=== PATIENT | female | born 1965 | race Caucasian/White ===

== ENCOUNTER 2022-10-08 18:18 | Emergency (ER) | payer OTHER, SELFPAY ==
[2022-10-08 18:37] VITALS: BP 143/102; PULSE 64; RESP 18; TEMP 36.4; O2SAT 100; BMI 30.4
--- NOTE | 2022-10-08 18:37 | ED_ITS ---
HPI - Eye Problem General Chief complaint: Eye Problems <Heidi Richards NP - Last Filed: 10/08/22 18:42> Stated complaint: R eye pain <Heidi Richards NP - Last Filed: 10/08/22 18:42> Time Seen by Provider: 10/08/22 19:43 <Heidi Richards NP - Last Filed: 10/08/22 18:42> Source: patient <Jada Schwartz MD - Last Filed: 10/08/22 20:57> Mode of arrival: ambulatory <Jada Schwartz MD - Last Filed: 10/08/22 20:57> Limitations: no limitations <Jada Schwartz MD - Last Filed: 10/08/22 20:57> History of Present Illness HPI Narrative: Patient comes emergency room complaining of 2 weeks of bilateral eye pain. Patient states that she has been treated with ketotifen eyedrops. Patient states that the tearing in her eyes has decreased. However, she still has pain in both eyes. Patient states it is not burning, it is a constant discomfort. Patient states that sometimes in the morning she wakes up with a bit of discharge but is not excessive. Patient denies fever chills. Patient states that at baseline she has blurry vision bilaterally, but over the last 2 weeks, it has been more blurry than usual. Patient denies seeing any floaters <Jada Schwartz MD - Last Filed: 10/08/22 20:57> Related Data Home medications: Previous Rx's Medication Instructions Recorded acetaminophen 500 mg capsule 500 mg PO Q6H PRN fever or pain 10/08/22 #20 caps erythromycin 5 mg/gram (0.5 %) eye 0.5 inch ophthalmic (eye) BID #3.5 10/08/22 ointment grams <Heidi Richards NP - Last Filed: 10/08/22 18:42> Allergies/adverse reactions: Allergies Allergy/AdvReac Type Severity Reaction Status Date / Time No Known Allergies Allergy Verified 10/08/22 18:37 <Heidi Richards NP - Last Filed: 10/08/22 18:42> Review of Systems Review of Systems: Constitutional : No Weight loss, No Fever, No Chills, No Night Sweats, No Fatigue, No Malaise ENT/Mouth : No Hearing loss, No Ear Pain, No Nasal Congestion, No Sinus Pain, No Hoarseness, No sore throat, No Rhinorrhea, No Swallowing Difficulty Eyes: Complaining of bilateral eye pain, occasional redness, occasional discharge Cardiovascular : No Chest Pain, No SOB, No Dyspnea on Exertion, No Orthopnea, No Edema, No Palpitations Respiratory : No Cough, No Sputum, No Wheezing, No Smoke Exposure, No Dyspnea Gastrointestinal : No Nausea, No Vomiting, No Diarrhea, No Constipation, No abdominal Pain, No Hematochezia, No Melena Genitourinary : no irregular bleeding, No Dysuria, No Urinary Frequency, No Hematuria, No Urinary Incontinence, No Urgency, No Flank Pain, No Urinary Flow Changes, No Hesitancy Musculoskeletal : No joint pain, No Myalgias, No Joint Swelling Skin : No Skin Lesions, No rash Neuro : No Weakness, No Numbness, No Paresthesias, No Loss of Consciousness, No Dizziness, No Headache Psych : No Anxiety/Panic, No Depression, No SI/HI/AH/VH, No Social Issues, Heme/Lymph: No Bruising, No Bleeding,No Lymphadenopathy Endocrine : No Polyuria, No Polydipsia, No Temperature Intolerance <Jada Schwartz MD - Last Filed: 10/08/22 20:57> [facility] Social History Social History: Social History Advance Directives: No Advance Directives Information Provided: No <Heidi Richards NP - Last Filed: 10/08/22 18:42> Physical Exam Vital Signs: Vital Signs: Last Vital Signs Temp 97.5 F 10/08/22 18:37 Pulse 64 10/08/22 18:37 Resp 18 10/08/22 18:37 BP 143/102 H 10/08/22 18:37 Pulse Ox 100 10/08/22 18:37 O2 Del Method 10/08/22 18:37 BMI result Body Mass Index 30.4 <Heidi Richards NP - Last Filed: 10/08/22 18:42> Vital Signs: Last Vital Signs Temp 97.5 F 10/08/22 18:37 Pulse 64 10/08/22 18:37 Resp 18 10/08/22 18:37 BP 143/102 H 10/08/22 18:37 Pulse Ox 100 10/08/22 18:37 O2 Del Method 10/08/22 18:37 BMI result Body Mass Index 30.4 <Jada Schwartz MD - Last Filed: 10/08/22 20:57> Const: Other: Appearance: Alert. Oriented X3. No acute distress. Eyes: Pupils equal, round and reactive to light. Seems to have slight photophobia, no conjunctival injection, no discharge, eye pressure in the ear right eye 11 mmHg, on the left side 12 mmHg, painless I have movements, fluorescein stain negative bilaterally, no corneal abrasions or foreign bodies visualized ENT: Pharynx normal. Neck: Normal inspection. Neck supple. No lymph nodes noted. No crepitus CVS: Normal heart rate and rhythm. Pulses normal. Normal S1 and S2 Respiratory: No respiratory distress. Breath sounds normal. No Wheezing. No rales Abdomen: Soft and nontender. No rigidity. No distention. Skin: Skin warm and dry. Normal skin color. Normal skin turgor. Extremities: No lower extremity edema. No Lacerations. No Rash Neuro: Oriented X 3. No motor deficit. No sensory deficit. Moving all extremities. No slurred speech. CN 2 through 12 grossly intact Psych: calm, cooperative, normal affect <Jada Schwartz MD - Last Filed: 10/08/22 20:57> Course Course Course Narrative: This is a rapid medical exam. Deferred additional HPI, ROS, PE to primary provider. 57 yo female with PMH hypothyroidism, gastritis, arthritis here with complaint of right eye itching, pain, redness, burning despite using topical ketoxifen to the eyes. Patient reports she saw the solar electric/photovoltaic installer 2 weeks ago and was prescribed eyedrops. She reports continued symptoms. She tells me she spoke to them today and is waiting to see a specialist in [place] who she is appointment within 1 week. No vision changes. Uses glasses only. VSS <Heidi Richards NP - Last Filed: 10/08/22 18:42> This is a rapid medical exam. Deferred additional HPI, ROS, PE to primary provider. 57 yo female with PMH hypothyroidism, gastritis, arthritis here with complaint of right eye itching, pain, redness, burning despite using topical ketoxifen to the eyes. Patient reports she saw the solar electric/photovoltaic installer 2 weeks ago and was prescribed eyedrops. She reports continued symptoms. She tells me she spoke to them today and is waiting to see a specialist in [place] who she is appointment within 1 week. No vision changes. Uses glasses only. VSS Patient wakes up with discharge in her eyes, questionable bacterial infection. Patient will benefit from a short course of erythromycin ointment. Also, I discussed with the patient given the amount of time of her symptoms, patient likely has uveitis. Patient has an appointment pending with her solar electric/photovoltaic installer in 1 week, requesting if we can give her the phone number of our ophthalmologists, maybe she can be seen sooner. Is possible that patient may need ophthalmic steroids. I discussed with the patient that it is best that this be determined by Ophthalmology <Jada Schwartz MD - Last Filed: 10/08/22 20:57> Medications Administered Discontinued Medications Generic Name Dose Route Start Last Admin Trade Name Freq PRN Reason Stop Dose Admin Fluorescein Sodium 1 strip 10/08/22 20:08 10/08/22 20:20 Fluorescein Sodium Strip EYE-LEFT 10/08/22 20:09 1 strip ONCE ONE Administration Tetracaine HCl 3 drop 10/08/22 20:08 10/08/22 20:20 Tetracaine Hcl/Pf 0.5% Oph Ольга 4 Ml Drops EYE-RIGHT 10/08/22 20:09 3 drop ONCE ONE Administration <Heidi Richards NP - Last Filed: 10/08/22 18:42> Medications Administered Discontinued Medications Generic Name Dose Route Start Last Admin Trade Name Freq PRN Reason Stop Dose Admin Fluorescein Sodium 1 strip 10/08/22 20:08 10/08/22 20:20 Fluorescein Sodium Strip EYE-LEFT 10/08/22 20:09 1 strip ONCE ONE Administration Tetracaine HCl 3 drop 10/08/22 20:08 10/08/22 20:20 Tetracaine Hcl/Pf 0.5% Oph Ольга 4 Ml Drops EYE-RIGHT 10/08/22 20:09 3 drop ONCE ONE Administration <Jada Schwartz MD - Last Filed: 10/08/22 20:57> Medical Decision Making Differential Diagnosis Differential Diagnoses: The differential diagnosis associated with the presentation includes (Iritis, uveitis, conjunctivitis, seasonal allergies) <Jada Schwartz MD - Last Filed: 10/08/22 20:57> Discharge Plan Discharge Clinical Impression: Uveitis of both eyes <Heidi Richards NP - Last Filed: 10/08/22 18:42> Patient Disposition: Home, Self-Care <Heidi Richards NP - Last Filed: 10/08/22 18:42> Instructions: Iritis (ED) <Heidi Richards NP - Last Filed: 10/08/22 18:42> Additional Instructions: Please follow-up with your primary care physician tomorrow. If you have any worsening or new symptoms, please return to the emergency room or call 911 <Heidi Richards NP - Last Filed: 10/08/22 18:42> Prescriptions: New erythromycin 5 mg/gram (0.5 %) ointment 0.5 inch ophthalmic (eye) BID Qty: 3.5 0RF acetaminophen 500 mg capsule 500 mg PO Q6H PRN (Reason: fever or pain) Qty: 20 0RF <Heidi Richards NP - Last Filed: 10/08/22 18:42> Referrals: Andrew Strickland [Physician] - 1 day <Heidi Richards NP - Last Filed: 10/08/22 18:42>
--- NOTE | 2022-10-08 18:42 | PC.NURSE ---
pt ok'd to put in emc per provider
[2022-10-08] MEDS: Tetracaine HCl/PF 0.5% Oph Sol 4 ML DROPS 3 DROP EYE-RIGHT (20:20)
[2022-10-08] MEDS: Fluorescein Sodium STRIP 1 STRIP EYE-LEFT (20:20)
== END 2022-10-08 21:08 | disposition home or self-care (01) ==
PROVIDERS: Emergency Provider Emergency Medicine
DX: H20.9 Unspecified iridocyclitis (principal); H57.13 Ocular pain, bilateral
CPT/HCPCS: 99282; 99283

== ENCOUNTER 2023-09-20 16:50 | Emergency (ER) | payer MEDICAID, SELFPAY ==
[2023-09-20 17:44] VITALS: BP 152/64; PULSE 60; RESP 20; TEMP 36.8; O2SAT 99; BMI 31.0
--- NOTE | 2023-09-20 17:45 | ED_ITS ---
HPI - General Adult General Chief complaint: General Medical Stated complaint: ? UTI Time Seen by Provider: 09/20/23 19:29 Source: patient Limitations: no limitations History of Present Illness HPI narrative: 58 years old with history of overactive bladder, uterine prolapse, presents emergency room for increased urinary frequency, dysuria and urinary tenesmus ongoing for the past 4 days. The patient reports that she urinates multiple times in an hour, denies however fever, abdominal pain. At times patient reports back pain. No chest pain, shortness of breath or cough No diarrhea, bloody stools. Patient next nodule uptake. Denies vaginal bleeding or vaginal discharge reports the symptoms are similar to prior UTI that was 3 years ago.+ Related Data Previous Rx's Medication Instructions Recorded acetaminophen 500 mg capsule 500 mg PO Q6H PRN fever or pain 10/08/22 #20 caps erythromycin 5 mg/gram (0.5 %) eye 0.5 inch ophthalmic (eye) BID #3.5 10/08/22 ointment grams phenazopyridine 100 mg tablet 100 mg PO TID dysuria 6 doses #10 09/20/23 (Pyridium) tabs Allergies Allergy/AdvReac Type Severity Reaction Status Date / Time No Known Allergies Allergy Verified 09/20/23 17:47 Review of Systems 2 Review of Systems: Yes all other systems are reviewed and are negative [facility] Social History Smoked in Last 30 Days: No Use of substances other than those prescribed or required for medical reasons: No Advance Directives: No Advance Directives Information Provided: No Physical Exam ED Vital Signs: Vital Signs - 24 hr 09/20/23 17:44 Temperature 98.2 F Pulse Rate 60 Respiratory Rate 20 Blood Pressure 152/64 H Pulse Oximetry 99 Oxygen Delivery Method Room Air BMI result Body Mass Index 31.0 General: Alert, Not in Distress Skin: No rash, warm HEENT: Atraumatic, No Exudate or Pharyngeal Erythema Resp: Normal Breath sounds bilaterally Cardio: Regular rate and Rhythm, Normal S1, S2 ABD: Abd soft, non tender, no guarding or rebound. Normal Bowel sounds. : No cva tenderness bilaterally Neuro: Alert, oriented x4, PERRL Strenght 5/5 on all extremities Sensation is preserved in both lower and upper extremities Index to nose: normal Cranial Nerves II-XII grossly intact No dysarthria, or aphasia No neglet. Visual beverly are normal bilaterally Psych: Cooperative, NO SI Course Course Course Narrative: This is a rapid medical exam: Additional HPI, ROS, PE not included below will be deferred to primary provider. Patient is a 58-year-old female presenting to the emergency department stating that she feels as though she has a UTI. Complains of frequency, dysuria for 5 days. Denies fevers but reports chills. Denies back or flank pain. Denies abnormal vaginal discharge. Denies abdominal pain, nausea, vomiting, diarrhea. Plan: UA Reevaluation(s) Reevaluation #1: Patient still looks comfortable, however UA is negative. Will extend workup to rule out other possible cause of lower quadrant pain. will get cmp, cbc and lactic. will give analgesia. aseptic cystitis in setting of hyperactive bladder is possible. Time: 20:29 Reevaluation #2: Patient lab work is otherwise unremarkable at this time patient has been hemodynamically stable throughout her stay in the emergency room and i do not think she requires admission or observation. Possible differential diagnosis at this time include aseptic cystitis, irritable bladder, UTI although this is less likely, chlamydia and gonorrhea. Patient herself asked to be tested for chlamydia gonorrhea will send urine sample I recommended the patient return to the emergency room in case her symptoms worsen. Otherwise patient knows that she is to follow up with primary care doctor. All questions answered. Will DC home Time: 21:33 Medications Administered Discontinued Medications Generic Name Dose Route Start Last Admin Trade Name Baltazarq PRN Reason Stop Dose Admin Acetaminophen 975 mg 09/20/23 20:28 09/20/23 20:56 Acetaminophen 325 Mg Tablet PO 09/20/23 20:29 975 mg ONCE ONE Administration Sodium Chloride 500 mls @ 999 mls/hr 09/20/23 20:45 09/20/23 20:57 Ns IV 09/20/23 21:15 999 mls/hr .Q31M NEAL Administration Ketorolac Tromethamine 15 mg 09/20/23 20:28 09/20/23 20:56 Ketorolac Tromethamine 15 Mg/Ml Vial IVPUSH 09/20/23 20:29 15 mg ONCE ONE Administration Medical Decision Making Medical Decision Making MDM Narrative: Patient presented to the emergency room for dysuria increased urinary frequency consistent with UTI. Patient vital signs are stable and ti have low suspiciion for pyelonephritis, she does not have fever and the exam is unremarkable for CVA tenderness. Abdomen is soft. Plan UA Recess Differential Diagnosis UTI, pyelo, viral syndrome, unspecified abd pain Admission/Observation Consideration of admission/observation: Escalation of care including admission/observation considered Lab Data [facility] Lab Attestation statement: I reviewed the patient's lab results. 09/20/23 20:50 09/20/23 20:50 Labs: Lab Results 09/20/23 09/20/23 Range/Units 19:35 20:50 WBC 8.2 (4.8-10.8) X10*3/uL RBC 4.35 (4.20-5.50) X10*6/uL Hgb 13.3 (12.0-16.0) g/dl Hct 39.2 (37.0-47.0) % MCV 90.1 (80.0-98.0) fL MCH 30.6 (27.0-33.0) pg MCHC 33.9 (31.0-35.0) g/dl RDW 13.3 (11.0-16.0) % Plt Count 196 (160-400) X10*3/uL MPV 10.5 (9.4-12.3) fL Immature Gran % (Auto) 0.5 H (0.0-0.4) % Neut % (Auto) 45.6 (45-73) % Lymph % (Auto) 41.7 H (20-40) % [place] % (Auto) 8.9 (2-11) % Eos % (Auto) 2.8 (0-4) % Baso % (Auto) 0.5 (0-2) % Lymph # (Auto) 3.4 (1.2-4.9) X10*3/uL [place] # (Auto) 0.7 (0.1-1.2) X10*3/uL Eos # (Auto) 0.2 (0.0-0.4) X10*3/uL Baso # (Auto) 0.0 (0.0-0.2) X10*3/uL Abs Immat Gran (auto) 0.04 H (0.00-0.03) X10*3/uL Absolute Neuts (auto) 3.8 (2.0-8.3) x10*3/uL Absolute Nucleated RBC 0.000 (0.0-0.012) X10*3/uL Nucleated RBC % (auto) 0.0 (0.0-0.2) /100WBC Lactic Acid 0.9 (0.5-2.0) mmol/L Urine Color Yellow Urine Appearance Clear Urine pH 7.5 (5.0-9.0) Ur Specific [place] <= 1.005 (1.005-1.025) Urine Protein Negative (Neg-Trace) mg/dL Urine Glucose (UA) Negative (Negative) mg/dL Urine Ketones Negative (Negative) mg/dL Urine Blood Negative (Negative) Urine Nitrite Negative (Negative) Ur Leukocyte Esterase Small (1+) H (Negative) Urine RBC 0-2 (0-2) /HPF Urine WBC 0-5 (0-5) /HPF Ur Squamous Epith Cells 0-2 (0-2) /HPF Urine Bacteria None Seen (None Seen) Hyaline Casts 0-2 (0-2) /LPF Discharge Plan Discharge Clinical Impression: Dysuria Patient Disposition: Home, Self-Care Instructions: Dysuria (ED) Additional Instructions: You were seen emergency room for dysuria. Your urinalysis was negative CBC, CMP were also unremarkable. At this time because of your symptoms is unclear. Would recommend to use Tylenol 1000 mg Q 6 hours for the next 5 days as well as Motrin 400 mg every 8 hours as needed. You can also add Pyridium. this medication will make your urine orange?red. Urine would return to 2 normal color once the medication is discontinued would recommend to use Pyridium for 2 or 3 days. Follow up with your PCP in a few days Prescriptions: New phenazopyridine [Pyridium] 100 mg tablet 100 mg PO TID Qty: 10 0RF No Action erythromycin 5 mg/gram (0.5 %) ointment 0.5 inch ophthalmic (eye) BID Qty: 3.5 0RF acetaminophen 500 mg capsule 500 mg PO Q6H PRN (Reason: fever or pain) Qty: 20 0RF
[2023-09-20 19:43] LABS: Appearance Urine Clear; Color Urine Yellow; Glucose Urine UA Negative (Negative); Leukocyte Esterase Urine Small (1+) (Negative); Nitrite Urine Negative (Negative); PH 7.5 (5.0-9.0); Specific Gravity - Urine <= 1.005 (1.005-1.025); UMIC TRIGGER UACC YES; Urine Blood Negative (Negative); Urine Ketones Negative (Negative); Urine Protein Negative (Neg-Trace)
[2023-09-20 19:59] LABS: Bacteria Urine None Seen (None Seen); Hyaline Casts Urine 0-2 /LPF (0-2); RBC Urine 0-2 /HPF (0-2); Squamous Epithelial Cell Urine 0-2 /HPF (0-2); UACC Culture Trigger YES; WBC Urine 0-5 /HPF (0-5)
[2023-09-20] MEDS: Ketorolac Tromethamine 15 MG/ML VIAL IVPUSH (20:56)
[2023-09-20] MEDS: Acetaminophen 325 MG TABLET 975 MG PO (20:56)
[2023-09-20] MEDS: 0.9 % Sodium Chloride 500 ML 999 ML IV (20:57)
[2023-09-20 20:58] LABS: Basophils Percent Auto 0.5 % (0-2); Eosinophils Absolute Auto 0.2 X10*3/uL (0.0-0.4); Eosinophils Percent Auto 2.8 % (0-4); Hematocrit 39.2 % (37.0-47.0); Hemoglobin 13.3 g/dl (12.0-16.0); Imm Gran Abs Auto 0.04 X10*3/uL (0.00-0.03); Imm Gran Pct Auto 0.5 % (0.0-0.4); Lymphocytes Absolute Auto 3.4 X10*3/uL (1.2-4.9); Lymphocytes Percent Auto 41.7 % (20-40); MANUAL DIFF FLAG NO; Mean Corpuscular HGB Conc 33.9 g/dl (31.0-35.0); Mean Corpuscular Hemoglobin 30.6 pg (27.0-33.0); Mean Corpuscular Volume 90.1 fL (80.0-98.0); Mean Platelet Volume 10.5 fL (9.4-12.3); Monocytes Absolute Auto 0.7 X10*3/uL (0.1-1.2); Monocytes Percent Auto 8.9 % (2-11); Neutrophils Absolute Auto 3.8 x10*3/uL (2.0-8.3); Neutrophils Percent Auto 45.6 % (45-73); Platelet Count 196 X10*3/uL (160-400); Red Blood Count 4.35 X10*6/uL (4.20-5.50); Red Cell Distribution Width 13.3 % (11.0-16.0); White Blood Count 8.2 X10*3/uL (4.8-10.8)
--- NOTE | 2023-09-20 21:08 | PC.NURSE ---
this rn assumed care of pt. pt a&ox4, respirations even and unlabored. pt reports for a week she has experienced vaginal burning, pt reports using over the counter relief products without any help. pt reports some urination discomfort but denies pain. iv established and pt medicated per mar.
[2023-09-20 21:14] LABS: Lactic Acid 0.9 mmol/L (0.5-2.0)
[2023-09-20 21:55] VITALS: BP 137/72; PULSE 59; RESP 16; TEMP 36.6; O2SAT 98
[2023-09-20 22:12] LABS: Alanine Aminotransferase 58 U/L (0-31); Albumin Level 4.1 g/dL (3.5-5.0); Alkaline Phosphatase 67 U/L (39-117); Anion Gap 13 (12-20); Aspartate Amino Transferase 35 U/L (5-31); Bilirubin Total 0.4 mg/dL (0.0-1.0); Blood Urea Nitrogen 12 mg/dL (9-16); Calcium 9.6 mg/dL (8.4-10.2); Carbon Dioxide 27 mmol/L (22-29); Chloride 107 mmol/L (96-108); Creatinine Clr Calc Pharmacy 87.2; Estimated Glomerular Filt Rate > 60; Glucose Random 121 mg/dL (60-115); Potassium 3.8 mmol/L (3.3-5.1); Sodium 143 mmol/L (135-145); Total Protein 6.8 g/dL (6.5-8.0)
== END 2023-09-20 22:13 | disposition home or self-care (01) ==
PROVIDERS: Registered Nurse Emergency; Emergency Provider Student in an Organized Health Care Education/Training Program
DX: R30.0 Dysuria (principal); R35.0 Frequency of micturition; M54.50 Low back pain, unspecified; R10.30 Lower abdominal pain, unspecified; Z79.899 Other long term (current) drug therapy
CPT/HCPCS: 36415; 80053; 81001; 83605; 85025; 96361; 96374; 99284; 99285; J1885